=== PATIENT | female | born 1995 | race African-American/Black ===

== ENCOUNTER 2022-09-26 01:07 | Emergency (ER) | payer OTHER ==
[~2022-09-26] VITALS: Ht 177.8 cm; Wt 102.0 kg
[~2022-09-26 01:07] MED LIST: IRON CHEWS PO; PRE-NATAL PO
[2022-09-26 01:19] VITALS: BP 125/73
[2022-09-26] MEDS ORDERED: KEFLEX500 MG PO (01:28)
[2022-09-26 01:30] VITALS: BP 119/70
[2022-09-26 01:35] VITALS: BP 119/70
== END 2022-09-26 01:40 | disposition home or self-care (01) ==
LOC: ED 01:07
DX: S70.362A Insect bite (nonvenomous), left thigh, initial encounter (principal); L08.9 Local infection of the skin and subcutaneous tissue, unspecified; W57.XXXA Bitten or stung by nonvenomous insect and other nonvenomous arthropods, initial encounter

== ENCOUNTER 2022-11-11 12:43 | Emergency (ER) | payer OTHER ==
[~2022-11-11] VITALS: Ht 177.8 cm; Wt 70.0 kg
[~2022-11-11 12:43] MED LIST changes: +KEFLEX500 MG PO
[2022-11-11 14:20] LABS: BASO% 0.3 % (0-3); EOS% 2.7 % (0-8); HEMATOCRIT 33.8 % (37.0-47.0); HEMOGLOBIN 10.1 g/dl (12.0-16.0); IMMATURE GRANULOCYTES 0.1 % (0.0-5.0); LYMPH% 31.5 % (15-41); MEAN CORPUSCULAR HGB 22.1 pG CALC (26.0-32.0); MEAN CORPUSCULAR HGB CONC 29.9 g/dL CAL (32.0-36.0); MONO% 9.7 % (2-13); NEUT# 3.99 thou/uL (2.00-7.15); NEUT% 55.7 % (42-76); RED BLOOD COUNT 4.57 mill/uL (4.20-5.60); RED CELL DISTRI WIDTH 15.6 % (11.5-15.5)
[2022-11-11 14:31] LABS: ALBUMIN 4.3 g/dL (3.2-5.0); ALKALINE PHOSPHATASE 50 u/l (38-126); ANION GAP 12 (6-22 (CALC)); BILIRUBIN, TOTAL 0.4 mg/dL (0.02-1.3); BUN 4 mg/dL (7-17); BUN/CREATININE RATIO 8 (12-20 (CALC)); CARBON DIOXIDE 22 mmol/l (22-30); CHLORIDE 107 mmol/l (95-108); CREATININE 0.5 mg/dL (0.5-1.0); GFR FOR AFR.AMER. > 60 ML/MIN (>=60 (CALC)); GFR OTHER RACES > 60 ML/MIN (>=60 (CALC)); POTASSIUM 3.7 mmol/l (3.5-5.1); SGOT/AST 26 u/l (14-36); SODIUM 137 mmol/l (137-146); TOTAL PROTEIN 8.2 g/dL (6.3-8.2)
[2022-11-11 15:13] LABS: BETA-HCG, QUANT(RESULT NUMBER) 50527 mIU/mL
[2022-11-11 15:38] VITALS: BP 127/65
== END 2022-11-11 15:48 | disposition home or self-care (01) ==
LOC: ED 12:43
PROVIDERS: Family Medicine
DX: O26.899 Other specified pregnancy related conditions, unspecified trimester (principal); R51.9 Headache, unspecified; Z3A.00 Weeks of gestation of pregnancy not specified

== ENCOUNTER 2023-05-01 08:57 | Emergency (ER) | payer SELFPAY ==
[2023-05-01] VITALS (9 sets, daily range): BP systolic 116–132; BP diastolic 71–86
[~2023-05-01] VITALS: Ht 177.8 cm; Wt 98.6 kg
[2023-05-01] MEDS ORDERED: CLINDAMYCIN300 M1 PO (10:41)
== END 2023-05-01 11:01 | disposition home or self-care (01) | DRG 833 ==
LOC: ED 08:57
DX: O99.611 Diseases of the digestive system complicating pregnancy, first trimester (principal); K04.7 Periapical abscess without sinus; K02.9 Dental caries, unspecified; Z3A.10 10 weeks gestation of pregnancy

== ENCOUNTER 2023-09-27 14:48 | Emergency (ER) | payer OTHER ==
[~2023-09-27] VITALS: Ht 180.3 cm; Wt 100.6 kg
[~2023-09-27 14:48] MED LIST changes: +CLINDAMYCIN300 M1 PO
[2023-09-27 15:17] VITALS: BP 115/80
[2023-09-27] MEDS ORDERED: PENICILLN VK500 MG PO (15:19)
[2023-09-27 15:25] VITALS: BP 115/80
== END 2023-09-27 15:35 | disposition home or self-care (01) ==
LOC: ED 14:48
DX: O99.613 Diseases of the digestive system complicating pregnancy, third trimester (principal); K04.7 Periapical abscess without sinus; K02.9 Dental caries, unspecified; Z3A.31 31 weeks gestation of pregnancy